=== PATIENT | male | born 1975 | race African-American/Black ===

== ENCOUNTER 2024-08-03 11:17 | Emergency (ER) | payer BC ==
[2024-08-03 12:24] LABS: SARS-CoV-2 Antigen CONTROL BLUE LINE VIS/BG OK; SARS-CoV-2 Antigen Rapid Res Negative (Negative)
[2024-08-03] MEDS ORDERED: LEVALBUTEROL 1.25 MG/3 ML NEB ONE (12:44)
[2024-08-03] MEDS ORDERED: predniSONE 20 MG TAB ONE (12:45)
--- NOTE | 2024-08-03 13:10 | ER ---
Nurse's Notes [facility] Name: Waqas Nichols Age: 49 yrs Sex: Male : 1975 Arrival Date: 08/03/2024 Time: 11:17 Bed 9 Private MD: Diagnosis: Acute sinusitis, unspecified Presentation: 08/03 11:35 Chief complaint: Patient states: nasal congestion, burning sinus pain, headache, left iw eye watering , started three days ago. Coronavirus screen: Client presents with at least one sign or symptom that may indicate coronavirus-19. Ebola Screen: No symptoms or risks identified at this time. Initial Sepsis Screen: Does the patient meet any 2 criteria? No. Patient's initial sepsis screen is negative. Does the patient have a suspected source of infection? No. Patient's initial sepsis screen is negative. Risk Assessment: Do you want to hurt yourself or someone else? Patient reports no desire to harm self or others. 11:35 Method Of Arrival: Wheelchair iw 11:36 Onset of symptoms was July 31, 2024. iw 11:36 Acuity: KRISTA 4 iw Triage Assessment: 13:30 General: Appears in no apparent distress. Behavior is calm, cooperative. Respiratory: iw Airway is patent Respiratory effort is even, unlabored, Respiratory pattern is regular, symmetrical. Historical: - Allergies: 11:36 No Known Allergies; iw - Home Meds: 11:36 None [Active]; iw - PMHx: 11:36 None; iw - Immunization history:: Adult Immunizations not up to date. - Infectious Disease History:: Denies. - Social history:: Smoking status: Patient/guardian denies using tobacco, but has a distant history of tobacco abuse. - Family history:: not pertinent. - Hospitalizations: : No recent hospitalization is reported. Screenin:30 [facility] ED Fall Risk Assessment (Adult) History of falling in the last 3 months, iw including since admission No falls in past 3 months (0 pts) Confusion or Disorientation No (0 pts) Intoxicated or Sedated No (0 pts) Impaired Gait No (0 pts) Mobility Assist Device Used No (0 pt) Altered Elimination No (0 pt) Score/Fall Risk Level 0 - 2 = Low Risk Oriented to surroundings, Maintained a safe environment. Abuse screen: Denies threats or abuse. Denies injuries from another. Nutritional screening: No deficits noted. Tuberculosis screening: No symptoms or risk factors identified. Assessment: 11:35 General: Appears in no apparent distress. Behavior is calm, cooperative. Pain: iw Complains of pain in face. Neuro: Level of Consciousness is awake, alert, obeys commands, Oriented to person, place, time, situation, Moves all extremities. Cardiovascular: Patient's skin is warm and dry. Respiratory: Airway Respiratory effort is even, Derm: Skin is intact, is healthy with good turgor. Musculoskeletal: Range of motion: intact in all extremities. Vital Signs: 11:35 BP 158 / 90; Pulse 94; Resp 18; Temp 98(TE); Pulse Ox 99% on R/A; Weight 117.93 kg; iw Height 5 ft. 9 in. ; Pain 10/10; 11:35 Body Mass Index 38.39 (117.93 kg, 175.26 cm) iw 11:35 Pain Scale: Adult iw ED Course: 11:22 Patient arrived in ED. ra3 11:32 Huber Rios MD is Attending Physician. rn 11:35 Patient has correct armband on for positive identification. Provided Education on: . iw 11:36 Triage completed. iw 11:37 Arm band placed on. iw 12:50 Lisa Correia RN is Primary Nurse. iw 13:34 No provider procedures requiring assistance completed. Patient did not have IV access iw during this emergency room visit. Administered Medications: 12:50 Drug: predniSONE PO 60 mg PO once Route: PO; iw 13:50 Follow up: Response: No adverse reaction iw 12:50 Drug: Levalbuterol Inhalation 1.25 mg Inhalation once Route: Inhalation; iw 13:32 Drug: Amoxicillin-Clavulanate PO 875 mg PO once Route: PO; iw 13:35 Follow up: Response: No adverse reaction iw Medication: 11:35 VIS not applicable for this client. iw Outcome: 13:09 Discharge ordered by . rn 13:34 Discharged to home iw 13:34 Condition: good 13:34 Discharge instructions given to patient, Instructed on discharge instructions, follow up and referral plans. Demonstrated understanding of instructions, follow-up care, medications, Prescriptions given X 2, 13:35 Patient left the ED. iw Signatures: Lisa Correia RN RN iw Huber Rios MD MD rn Alva, Ruby ra3 Corrections: (The following items were deleted from the chart) 11:38 11:35 BP 155 / 111; Pulse 94bpm; Resp 18bpm; Pulse Ox 99% RA; 117.93 kg; Height 5 ft. 9 iw in.; BMI: 38.3; Pain 10, Adult; iw
--- NOTE | 2024-08-03 13:10 | EDPHYS ---
Physician Documentation [facility] Name: Waqas Nichols Age: 49 yrs Sex: Male : 1975 Arrival Date: 08/03/2024 Time: 11:17 Bed 9 Private MD: ED Physician Huber Rios HPI: 08/03 13:07 This 49 yrs old Black Male presents to ER via Wheelchair with complaints of Cold rn Symptoms, Congestion. 13:07 The patient or guardian reports cough, flu symptoms. Onset: The symptoms/episode rn began/occurred 2 day(s) ago. Severity of symptoms: At their worst the symptoms were mild. Modifying factors: The symptoms are alleviated by nothing, the symptoms are aggravated by nothing. The patient has experienced similar episodes in the past. Patient reports sinus congestion, upper respiratory infection, cough, congestion, no fever. States feels like needs breathing treatment. No productive cough. No hemoptysis. No fever.. Historical: - Allergies: 11:36 No Known Allergies; iw - Home Meds: 11:36 None [Active]; iw - PMHx: 11:36 None; iw - Immunization history:: Adult Immunizations not up to date. - Infectious Disease History:: Denies. - Social history:: Smoking status: Patient/guardian denies using tobacco, but has a distant history of tobacco abuse. - Family history:: not pertinent. - Hospitalizations: : No recent hospitalization is reported. ROS: 13:07 Constitutional: Negative for fever, chills, and weight loss, ENT: Positive for nasal rn congestion and sinus pressure Respiratory: Positive for cough, negative for shortness of breath Exam: 13:07 Constitutional: This is a well developed, well nourished patient who is awake, alert, rn and in no acute distress. ENT: No stridor. Tenderness along frontal sinuses and mild swelling around left eye. Cardiovascular: Regular rate and rhythm. No pulse deficits. Respiratory: Mild tachypnea, speaks full sentences. Vital Signs: 11:35 BP 158 / 90; Pulse 94; Resp 18; Temp 98(TE); Pulse Ox 99% on R/A; Weight 117.93 kg; iw Height 5 ft. 9 in. ; Pain 10/10; 11:35 Body Mass Index 38.39 (117.93 kg, 175.26 cm) iw 11:35 Pain Scale: Adult iw MDM: 11:32 Patient medically screened. rn 13:07 Differential Diagnosis: Bronchitis Influenza Upper Respiratory Infection Sinusitis rn Pharyngitis Viral Syndrome Pneumonia. Data reviewed: vital signs, nurses notes, lab test result(s), and as a result, I will discharge patient. Counseling: I had a detailed discussion with the patient and/or guardian regarding the historical points, exam findings, and any diagnostic results supporting the discharge/admit diagnosis, lab results, the need for outpatient follow up, to return to the emergency department if symptoms worsen or persist or if there are any questions or concerns that arise at home. Special discussion: I discussed with the patient/guardian in detail that at this point there is no indication for admission to the hospital. It is understood, however, that if the symptoms persist or worsen the patient needs to return immediately for re-evaluation. 08/03 11:32 Order name: SARS RAPID; Complete Time: 13:01 rn 08/03 11:32 Order name: Flu; Complete Time: 13:01 rn Administered Medications: 12:50 Drug: predniSONE PO 60 mg PO once Route: PO; iw 13:50 Follow up: Response: No adverse reaction iw 12:50 Drug: Levalbuterol Inhalation 1.25 mg Inhalation once Route: Inhalation; iw 13:32 Drug: Amoxicillin-Clavulanate PO 875 mg PO once Route: PO; iw 13:35 Follow up: Response: No adverse reaction iw Disposition Summary: 08/03/24 13:09 Discharge Ordered Notes: Location: Home rn Problem: new rn Symptoms: have improved rn Condition: Stable rn Diagnosis - Acute sinusitis, unspecified rn Followup: rn - With: Private Physician - When: As needed - Reason: Recheck today's complaints, Re-evaluation by your physician Discharge Instructions: - Discharge Summary Sheet rn - Sinusitis, Adult rn Forms: - Work release form iw - Medication Reconciliation Form rn - Antibiotic rn imcu - Prescription Opioid Use rn - Patient Portal Instructions rn - Leadership Thank You Letter rn Prescriptions: - Augmentin 875-125 mg Oral Tablet - take 1 tablet ORAL route every 12 hours for 10 days; 20 tablet; Refills: 0, rn Product Selection Permitted Signatures: Dispatcher [employer] Lisa Salguero RN RN iw Huber Rios MD MD internist: (The following items were deleted from the chart) 11:32 11:32 SARS-COV-2 Antigen Rapid+I.LAB.BRZ ordered. EDMS EDMS : 11:32 Influenza Screen (A \T\ B)+BA.LAB.BRZ ordered. EDMS EDMS
[2024-08-03] MEDS ORDERED: AMOX/K CLAV 875 MG TAB ONE (13:23)
[2024-08-03 13:41] VITALS: BP 158/90; TEMP 98; O2SAT 99
== END 2024-08-03 13:35 | disposition home or self-care (01) ==
LOC: ER 11:17
DX: J01.90 Acute sinusitis, unspecified (principal); Z11.52 Encounter for screening for COVID-19
CPT/HCPCS: 36415; 87804 ×2; 99284; 87811; J7512; J7614